=== PATIENT | female | born 1975 | race Caucasian/White ===

== ENCOUNTER → 2021-01-24 | Outpatient (CLI) | payer OTHER ==
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
== END ==
LOC: KCIC CT 12:52
PROVIDERS: ATTEND Physical Medicine & Rehabilitation
DX: S06.9X0A Unspecified intracranial injury without loss of consciousness, initial encounter (principal); X58.XXXA Exposure to other specified factors, initial encounter; Y93.89 Activity, other specified; Y92.89 Other specified places as the place of occurrence of the external cause; Y99.8 Other external cause status
CPT/HCPCS: 70450

== ENCOUNTER → 2021-01-25 | Outpatient (CLI) | payer OTHER ==
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
== END ==
LOC: KCIC MRI 15:20
PROVIDERS: ATTEND Physical Medicine & Rehabilitation
DX: M54.12 Radiculopathy, cervical region (principal)
CPT/HCPCS: 72141